=== PATIENT | female | born 1995 | race Caucasian/White ===

== ENCOUNTER 2017-05-19 15:11 | Emergency (ER) | payer OTHER ==
[~2017-05-19] VITALS: Ht 172.7 cm; Wt 70.0 kg
[2017-05-19 15:13] VITALS: BP 119/64; PULSE 101; RESP 18; TEMP 98.2; O2SAT 100
[2017-05-19 16:19] LABS: AUTOMATED NEUTROPHIL # 4.4 TH/MM3 (1.8-7.7); BASOPHIL % 0.4 % (0.0-2.0); EOSINOPHIL # 0.4 TH/MM3 (0-0.4); EOSINOPHIL % 5.9 % (0.0-4.0); HEMATOCRIT 43.3 % (35.0-46.0); HEMO FLAGS DIFF FINAL; LYMPH % 17.8 % (9.0-44.0); LYMPHOCYTE # 1.2 TH/MM3 (1.0-4.8); MEAN CELL VOLUME 88.3 FL (80.0-100.0); MEAN CORPUSCULAR HEMOGLOBIN 28.9 PG (27.0-34.0); MEAN CORPUSCULAR HGB CONC 32.7 % (32.0-36.0); MONO % 8.2 % (0.0-8.0); NEUT % 67.7 % (16.0-70.0); PLATELET COUNT 208 TH/MM3 (150-450); RED CELL DISTRIBUTION WIDTH 14.2 % (11.6-17.2); WHITE BLOOD COUNT 6.6 TH/MM3 (4.0-11.0)
[2017-05-19 16:27] LABS: ALT (GPT) 25 U/L (9-42); ANION GAP 6 MEQ/L (5-15); AST (GOT) 18 U/L (16-38); BICARBONATE 27.2 MEQ/L (21.0-32.0); BLOOD UREA NITROGEN 9 MG/DL (7-18); CHLORIDE 106 MEQ/L (98-107); GLOMERULAR FILTRATION RATE 85 ML/MIN (>89); POTASSIUM 3.8 MEQ/L (3.5-5.1); SODIUM (NA) 139 MEQ/L (136-145)
[2017-05-19 16:28] LABS: ALKALINE PHOSPHATASE 95 U/L (45-117); TOTAL BILIRUBIN ADULT 0.3 MG/DL (0.2-1.0)
[2017-05-19] MEDS ORDERED: SODIUM CHLOR 0.9% 1000 ML INJ 1,000 ML IV SCH ×2 (16:54)
--- NOTE | 2017-05-19 16:56 | PD ---
HPI Chief Complaint: GI Complaint Time Seen by Provider: 16:45 Travel History International Travel<30 days: No Contact w/Intl Traveler<30days: No Traveled to known affect area: No History of Present Illness HPI 21-year-old female with history of PCO as presents for evaluation of nausea and vomiting. She reports over the past week she has had nausea and vomiting, difficulty tolerating any food or fluids. She reports over the past 3 days she has had blood-streaked emesis. She reports that she feels like she is getting dehydrated. Today at work after a vomiting episode she sat on the ground in the bathroom of her work and she "passed out" for a few minutes. She is currently complaining of nausea. She reports that last week she had cough and congestion which is somewhat better but has still persisted. Denies any significant abdominal pain, flank pain, diarrhea, bright red blood per rectum, dark tarry stools. No other complaints. PFSH Past Medical History Respiratory: Yes (ASTHMA) Social History Alcohol Use: Yes Tobacco Use: No Allergies-Medications (Allergen,Severity, Reaction): Coded Allergies: Amoxicillin (Verified Allergy, Intermediate, HIVES, 05/19/17) Reported Meds & Prescriptions Reported Meds & Active Scripts Active Zofran (Ondansetron HCl) 4 Mg Tab 4 Mg PO Q6HR PRN Review of Systems Except as stated in HPI: all other systems reviewed are Neg Physical Exam Narrative GENERAL: Well-developed well-nourished female in no acute distress. Vital signs reviewed. SKIN: Warm and dry. HEAD: Atraumatic. Normocephalic. EYES: Pupils equal and round. No scleral icterus. No injection or drainage. ENT: No nasal bleeding or discharge. Mucous membranes pink and moist. NECK: Trachea midline. No JVD. CARDIOVASCULAR: Regular rate and rhythm. No murmur appreciated. RESPIRATORY: No accessory muscle use. Clear to auscultation. Breath sounds equal bilaterally. GASTROINTESTINAL: Abdomen soft, non-tender, nondistended. Hepatic and splenic margins not palpable. MUSCULOSKELETAL: No obvious deformities. No clubbing. No cyanosis. No edema. NEUROLOGICAL: Awake and alert. No obvious cranial nerve deficits. Motor grossly within normal limits. Normal speech. PSYCHIATRIC: Appropriate mood and affect; insight and judgment normal. Data Data Last Documented VS Vital Signs Date Time Temp Pulse Resp B/P Pulse Ox O2 Delivery O2 Flow Rate FiO2 7/6/17 17:06 70 18 125/59 99 Room Air 05/19/17 15:13 98.2 Orders Complete Blood Count With Diff (05/19/17 15:34) Comprehensive Metabolic Panel (05/19/17 15:34) Urinalysis - C+S If Indicated (05/19/17 15:34) Lipase (05/19/17 15:34) Ed Urine Pregnancytest Poc (05/19/17 16:54) Chest, Single Ap (05/19/17 ) Ondansetron Inj (Zofran Inj) (05/19/17 17:00) Pantoprazole Inj (Protonix Inj) (05/19/17 17:00) Sodium Chlor 0.9% 1000 Ml Inj (Ns 1000 M (05/19/17 16:54) Sodium Chlor 0.9% 1000 Ml Inj (Ns 1000 M (05/19/17 16:54) Electrocardiogram (05/19/17 ) Urine Culture (05/19/17 18:55) Nitrofurantoin Monohyd Macrocr (Macrobid (05/19/17 20:15) Labs Laboratory Tests Test 05/19/17 05/19/17 15:47 18:55 White Blood Count 6.6 TH/MM3 Red Blood Count 4.90 MIL/MM3 Hemoglobin 14.1 GM/DL Hematocrit 43.3 % Mean Corpuscular Volume 88.3 FL Mean Corpuscular Hemoglobin 28.9 PG Mean Corpuscular Hemoglobin 32.7 % Concent Red Cell Distribution Width 14.2 % Platelet Count 208 TH/MM3 Mean Platelet Volume 9.5 FL Neutrophils (%) (Auto) 67.7 % Lymphocytes (%) (Auto) 17.8 % Monocytes (%) (Auto) 8.2 % Eosinophils (%) (Auto) 5.9 % Basophils (%) (Auto) 0.4 % Neutrophils # (Auto) 4.4 TH/MM3 Lymphocytes # (Auto) 1.2 TH/MM3 Monocytes # (Auto) 0.5 TH/MM3 Eosinophils # (Auto) 0.4 TH/MM3 Basophils # (Auto) 0.0 TH/MM3 CBC Comment DIFF FINAL Differential Comment Sodium Level 139 MEQ/L Potassium Level 3.8 MEQ/L Chloride Level 106 MEQ/L Carbon Dioxide Level 27.2 MEQ/L Anion Gap 6 MEQ/L Blood Urea Nitrogen 9 MG/DL Creatinine 0.85 MG/DL Estimat Glomerular Filtration 85 ML/MIN Rate Random Glucose 92 MG/DL Calcium Level 8.8 MG/DL Total Bilirubin 0.3 MG/DL Aspartate Amino Transf 18 U/L (AST/SGOT) Alanine Aminotransferase 25 U/L (ALT/SGPT) Alkaline Phosphatase 95 U/L Total Protein 7.4 GM/DL Albumin 3.6 GM/DL Lipase 80 U/L Urine Color YELLOW Urine Turbidity HAZY Urine pH 6.0 Urine Specific [place] 1.031 Urine Protein 30 mg/dL Urine Glucose (UA) NEG mg/dL Urine Ketones 10 mg/dL Urine Occult Blood NEG Urine Nitrite NEG Urine Bilirubin NEG Urine Urobilinogen 2.0 MG/DL Urine Leukocyte Esterase MOD Urine RBC 3 /hpf Urine WBC 9 /hpf Urine Squamous Epithelial 1 /hpf Cells Urine Amorphous Sediment RARE Urine Bacteria OCC /hpf Urine Hyaline Casts 1 /lpf Urine Mucus MANY /lpf Microscopic Urinalysis Comment CULTURE INDICATED MDM Medical Decision Making Medical Screen Exam Complete: Yes Emergency Medical Condition: Yes Medical Record Reviewed: Yes Differential Diagnosis Gastroenteritis, dehydration, electrolyte abnormality, Nafisa-Braun tear, peptic ulcer disease with bleeding, gastritis, arrhythmia Narrative Course 21-year-old otherwise healthy female presents with 1 week of nausea and vomiting , decreased appetite. She has had some blood streaked emesis over the past 3 days. She has had a cough and congestion for the past week. She reports a brief syncopal episode today. Examination is reassuring. Her abdomen is soft and nontender. She is not tachycardic. She has moist mucous membranes. She does not appear acutely dehydrated. Plan is for basic lab work, chest x-ray, EKG, urinalysis. She'll be given 2 L of IV fluids, Protonix, Zofran. Upon reexamination the patient feels significantly improved, her nausea has resolved. She has had no vomiting during her hospital stay. Urinalysis is suggestive of urinary tract infection. She'll be started on Macrobid. Diagnosis Primary Impression: Nausea and vomiting Qualified Code: R11.2 - Nausea and vomiting, intractability of vomiting not specified, unspecified vomiting type Additional Impression: Cystitis Additional Instructions: Medication as needed. Slowly advance diet as tolerated. Follow-up with primary care physician. Return for any emergent medical conditions. Med/Other Pt SpecificInfo: Prescription(s) given Scripts Nitrofurantoin Monohydrate Macrocrystals (Macrobid)100 Mg [id number] Mg PO BID 7 Days Ref 0 Prov:Bhavna Shafer DO 05/19/17 Ondansetron (Zofran)4 Mg Tab4 Mg PO Q6HR PRN (NAUSEA OR VOMITING) #20 TAB Ref 0 Prov:Bhavna Shafer DO 05/19/17 Disposition: 01 DISCHARGE HOME Condition: Stable Teddy Douglass May 19, 2017 16:56
[2017-05-19] MEDS ORDERED: ONDANSETRON HCL 4 MG/2 ML VIAL IVP ONE (17:00)
[2017-05-19] MEDS ORDERED: PANTOPRAZOLE SODIUM 40 MG VIAL IVP ONE (17:00)
[2017-05-19 17:06] VITALS: BP 125/59; PULSE 70; RESP 18; O2SAT 99
--- NOTE | 2017-05-19 17:55 | RADRPT ---
EXAM DATE/TIME: 05/19/2017 17:31 [facility] COMPARISON: No previous studies available for comparison. INDICATIONS : VOMITING WITH DARK BLOOD X 5 DAYS WITH COUGH AND CONGESTION MEDICAL HISTORY : Asthma SURGICAL HISTORY : None. ENCOUNTER: Initial ACUITY: 1 day PAIN SCORE: 4/10 LOCATION: Bilateral chest FINDINGS: A single view of the chest demonstrates the lungs to be symmetrically aerated without evidence of mas s, infiltrate or effusion. The cardiomediastinal contours are unremarkable. Osseous structures are intact. CONCLUSION: 1. No acute cardiopulmonary disease. Sonido Knapp MD on May 19, 2017 at 17:52 Board Certified Radiologist. This report was verified electronically.
[2017-05-19] MEDS ORDERED: ZOFR4TAB PO (18:45)
[2017-05-19 20:07] LABS: BACTERIA, URINE OCC /hpf; BLOOD, URINE NEG (NEG); COMMENT (UR) CULTURE INDICATED; CULTURE IF INDICATED CULTURE INDICATED; GLUCOSE,URINE NEG (NEG); HYALINE CAST, URINE 1 /lpf (RARE); KETONE, URINE 10 mg/dL (NEG); MUCUS URINE MANY /lpf (OCC); NITRITE,URINE NEG (NEG); SQUAMOUS EPITHELIAL CELL URINE 1 /hpf (0-5); URINE COLOR YELLOW (YELLW/STRAW)
[2017-05-19] MEDS ORDERED: NITROFURANTOIN MONOHYD MACROCR 100 MG CAP PO ONE (20:15)
[2017-05-19] MEDS ORDERED: MACR100C2 PO (20:15)
[2017-05-19 20:58] VITALS: BP 121/75
--- NOTE | 2017-05-20 13:30 | EKG ---
Date Performed: 05/19/2017 Time Performed: 17:12:32 PTAGE: 21 years EKG: Sinus rhythm NORMAL ECG NO PREVIOUS TRACING DOCTOR: Albert Pappas Interpretating Date/Time 05/20/2017 13:24:09
== END 2017-05-19 20:59 | disposition home or self-care (01) ==
LOC: NEPC 15:11
DX: R11.2 Nausea with vomiting, unspecified (principal); N30.90 Cystitis, unspecified without hematuria; R05 Cough
CPT/HCPCS: 71010; 80053; 81001; 83690; 84703; 85025; 87086; 93005; 96374; 96375; 99285; C9113; J2405; J7030